=== PATIENT | male | born 1995 | race Caucasian/White ===

== ENCOUNTER 2017-11-17 19:38 | Emergency (ER) | payer SELFPAY | END 2017-11-17 21:20 | disposition home or self-care (01) | LOC: D.ER 19:38 | DX: F41.9 Anxiety disorder, unspecified (principal); F41.0 Panic disorder [episodic paroxysmal anxiety]; R00.0 Tachycardia, unspecified; F17.200 Nicotine dependence, unspecified, uncomplicated ==

== ENCOUNTER 2017-11-17 23:36 | Emergency (ER) | payer SELFPAY | END 2017-11-18 00:20 | disposition home or self-care (01) | LOC: D.ER 23:36 | DX: R07.89 Other chest pain (principal); F15.10 Other stimulant abuse, uncomplicated; F17.200 Nicotine dependence, unspecified, uncomplicated; R00.1 Bradycardia, unspecified ==